=== PATIENT | male | born 1960 | race Caucasian/White ===

== ENCOUNTER 2016-11-07 17:01 | Emergency (ER) | payer BC ==
[2016-11-07] MEDS ORDERED: Famotidine 20 MG/2 ML SDV ONE (17:12)
[2016-11-07] MEDS ORDERED: methylPREDNISolone Sodium Succinate 125 MG/2 ML SDV IVPUSH ONE (17:13)
[2016-11-07] MEDS ORDERED: Famotidine 20 MG/2 ML SDV IVPUSH ONE ×2 (17:13)
[2016-11-07] MEDS ORDERED: diphenhydrAMINE 50 MG/ML SDV IVPUSH ONE (17:14)
[2016-11-07] MEDS ORDERED: Sodium Chloride 0.9% 1,000 ML IV SCH (17:15)
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
[2016-11-07 18:34] VITALS: BP 140/93
== END 2016-11-07 18:32 | disposition home or self-care (01) ==
LOC: SUPCPDRO 17:01 → JD.ED 17:01
DX: T63.441A Toxic effect of venom of bees, accidental (unintentional), initial encounter (principal); Z90.49 Acquired absence of other specified parts of digestive tract
CPT/HCPCS: 96361; 96374; 96375; 99285; J1200; J2930; J7040; 99284

== ENCOUNTER 2020-06-21 08:51 | Emergency (ER) | payer BC, OTHER ==
[2020-06-21] MEDS ORDERED: Sodium Chloride 0.9% 10 ML Syringe FLUSH PRN ×2 (09:02→10:10)
[2020-06-21 09:08] VITALS: BP 144/84; PULSE 62
--- NOTE | 2020-06-21 09:20 | EDM.PDOC ---
ED HPI GENERAL MEDICAL PROBLEM - General Chief Complaint: Chest Pain Stated Complaint: CHEST PAIN Time Seen by Provider: 06/21/20 09:02 Source of Information: Reports: Patient, RN Notes Reviewed - History of Present Illness INITIAL COMMENTS - FREE TEXT/NARRATIVE: 59 yr old male with sudden onset of chest pain, light headedness and dizziness about 1 hr ago. As outdoors working at the time. He states it "dropped him to his knees", almost passed out. Initially he was short of breath with some pleuritic chest pain. He now feels better, pain is almost gone. Hx CLL. No hx CAD. No recent cough, fever or chills. He bruised his L thigh badly from a fall yesterday so has a hematoma L thigh from that injury. Treatments MANUFACTURING CONTROLLER: Reports: Aspirin Other Treatments MANUFACTURING CONTROLLER: 81mg Middle Chest Pain Score (Numeric/FACES): 9 - Related Data Allergies Allergy/AdvReac Type Severity Reaction Status Date / Time acetaminophen [From Tylenol] Allergy Airway Verified 11/07/16 17:15 Tightness bee venom protein (honey bee) Allergy Swelling Verified 06/21/20 09:01 Home Meds: Home Meds EPINEPHrine [Epipen 2-Johan] 0.3 mg IJ ONETIME #2 ml 11/07/16 [Rx] Past Medical History Immunologic History: Reports: Other (See Below) (Allergic to bees.) - Past Surgical History GI Surgical History: Reports: Appendectomy Social & Family History - Caffeine Use Caffeine Use: Reports: Coffee, Soda - Living Situation & Occupation Living situation: Reports: Occupation: Employed ED ROS GENERAL - Review of Systems Review Of Systems: See Below Constitutional: Denies: Fever, Chills HEENT: Reports: No Symptoms Respiratory: Reports: Shortness of Breath (gone), Pleuritic Chest Pain (gone) Cardiovascular: Reports: Chest Pain (almost gone), Lightheadedness (now much better) GI/Abdominal: Denies: Abdominal Pain, Nausea, Vomiting Musculoskeletal: Reports: Leg Pain (area of injury L lateral thigh) Skin: Reports: Bruising (L lateral thigh) Neurological: Reports: Numbness (He had numbness at time of onset, "whole body", brief, now gone). Denies: Tingling, Trouble Speaking, Difficulty Walking, Weakness ED EXAM, GENERAL - Physical Exam Exam: See Below General Appearance: Alert, No Apparent Distress Eye Exam: Bilateral Eye: PERRL Throat/Mouth: Normal Inspection Head: Atraumatic. No: Facial Swelling Neck: Supple Respiratory/Chest: No Respiratory Distress, Lungs Clear, Normal Breath Sounds Cardiovascular: Regular Rate, Rhythm GI/Abdominal: Soft, Non-Tender. No: Guarding Extremities: Leg Pain, Other (Moderate bruising L thigh, small abrasion L lateral lower leg, calf nontender, not swollen). No: Pedal Edema, Increased Warmth, Redness Neurological: Alert, Oriented Skin Exam: Warm, Dry, Normal Color #1 Interpretation EKG Date: 06/21/20 Rhythm: NSR [place]: Normal P-Wave: Present QRS: Normal ST-T: Normal Course - Vital Signs Last Recorded V/S: Last Vital Signs Temp 98.4 F 06/21/20 09:06 Pulse 62 06/21/20 09:06 Resp 16 06/21/20 09:06 BP 144/84 H 06/21/20 09:06 Pulse Ox 96 06/21/20 09:06 - Orders/Labs/Meds Labs: Laboratory Tests 06/21/20 06/21/20 06/21/20 Range/Units 09:07 09:07 09:07 WBC 146.58 H* (4.23-9.07) K/mm3 RBC 4.37 L (4.63-6.08) M/mm3 Hgb 12.8 L D (13.7-17.5) gm/dl Hct 40.2 (40.1-51.0) % MCV 92.0 D (79.0-92.2) fl MCH 29.3 (25.7-32.2) pg MCHC 31.8 L (32.2-35.5) g/dl RDW Std Deviation 50.8 H (35.1-43.9) fL Plt Count 141 L (163-337) K/mm3 MPV 9.6 (9.4-12.3) fl Neut % (Auto) 3.7 L (34.0-67.9) % Lymph % (Auto) 92.8 H (21.8-53.1) % [place] % (Auto) 2.8 L (5.3-12.2) % Eos % (Auto) 0.2 L (0.8-7.0) Baso % (Auto) 0.3 (0.1-1.2) % Neut # (Auto) 5.35 (1.78-5.38) K/mm3 Lymph # (Auto) 136.06 H (1.32-3.57) K/mm3 [place] # (Auto) 4.08 H (0.30-0.82) K/mm3 Eos # (Auto) 0.23 (0.04-0.54) K/mm3 Baso # (Auto) 0.51 H (0.01-0.08) K/mm3 Manual Slide Review Abnormal smear D-Dimer, Quantitative 0.98 H (0.19-0.50) mg/L Sodium 142 (136-145) mEq/L Potassium 4.4 (3.5-5.1) mEq/L Chloride 107 (98-107) mEq/L Carbon Dioxide 22 (21-32) mEq/L Anion Gap 17.4 H (5-15) BUN 19 H (7-18) mg/dL Creatinine 1.0 (0.7-1.3) mg/dL Est Cr Clr Drug Dosing 89.89 mL/min Estimated GFR (MDRD) > 60 (>60) mL/min BUN/Creatinine Ratio 19.0 H (14-18) Glucose 116 H (74-106) mg/dL Calcium 9.3 (8.5-10.1) mg/dL Total Bilirubin 0.5 (0.2-1.0) mg/dL AST 29 (15-37) U/L ALT 31 (16-63) U/L Alkaline Phosphatase 90 (46-116) U/L Troponin I 0.035 (0.00-0.056) ng/mL Total Protein 6.9 (6.4-8.2) g/dl Albumin 4.0 (3.4-5.0) g/dl Globulin 2.9 gm/dL Albumin/Globulin Ratio 1.4 (1-2) Meds: Medications Discontinued Medications Generic Name Dose Route Start Last Admin Trade Name Freq PRN Reason Stop Dose Admin Sodium Chloride 100 mls @ 75 mls/hr 06/21/20 10:15 06/21/20 10:16 Normal Saline IV 75 mls/hr ASDIRECTED BROCK Administration Sodium Chloride 1,000 mls @ 999 mls/hr 06/21/20 12:00 06/21/20 12:12 Normal Saline IV 999 mls/hr ONETIME BROCK Administration Iopamidol 100 ml 06/21/20 10:10 06/21/20 10:15 [id number] (76%) IVPUSH 06/21/20 10:11 100 ml ONETIME ONE Administration Sodium Chloride 10 ml 06/21/20 09:02 06/21/20 09:15 Saline Flush FLUSH 10 ml ASDIRECTED PRN Administration Keep Vein Open Sodium Chloride 10 ml 06/21/20 10:10 06/21/20 10:15 Saline Flush FLUSH 10 ml ONETIME PRN Administration IV FLUSH - Re-Assessments/Exams Free Text/Narrative Re-Assessment/Exam: 06/21/20 11:53 WBC 146,000. D Dimer 0.98. His states his counts have been going up , about 170,000 at the clinic very recently, about to start a new round of oral chemo. CT Pul angio done, no PE. See Radiology report for details. Will give 1 liter NS prior to discharge. Departure - Departure Time of Disposition: 12:54 Disposition: Home, Self-Care 01 Condition: Fair Clinical Impression: Near syncope, CLL (chronic lymphocytic leukemia), Atypical chest pain Contusion, thigh Qualifiers: Encounter type: initial encounter Laterality: left Qualified Code(s): S70.12XA - Contusion of left thigh, initial encounter Instructions: Near-Syncope, [id number], Nonspecific Chest Pain, Adult, [id number] Referrals: Felicia Jolley PA-C [Primary Care Provider] - Forms: ED Department Discharge Additional Instructions: Drink plenty of water to maintain hydration. Try get some rest. Start oral chemo. as planned. Follow up Dr Centeno as needed. Return to ED as needed if symptoms worsening in way. Sepsis Event Note (ED) - Evaluation Sepsis Screening Result: No Definite Risk
--- NOTE | 2020-06-21 09:39 | CR ---
Chest: Portable view of the chest was obtained. Comparison: No prior chest imaging is available. Heart size is normal. Tortuous thoracic aorta is seen. Lungs are clear with no acute parenchymal change. Bony structures are grossly intact. Impression: 1. Nothing acute is seen on portable chest x-ray. Diagnostic code #1
[2020-06-21] MEDS ORDERED: Iopamidol 755 Mg/ML 100 ML Bottle IVPUSH ONE (10:10)
[2020-06-21] MEDS ORDERED: Sodium Chloride 0.9% 100 ML IV SCH (10:15)
--- NOTE | 2020-06-21 10:34 | CT ---
CT chest Technique: Multiple axial sections through the chest were obtained. Intravenous contrast was utilized as a pulmonary angiogram protocol. Comparison: No prior chest CT, previous chest x-ray performed on the same day as the CT exam. Findings: Pulmonary arteries are well opacified. No filling defects are seen to indicate pulmonary embolism. Adenopathy is seen within both axillary regions. Slightly prominent lymph node is noted within the inferior right hilar region. Small lymph nodes within the mediastinum which are believed to be within normal limits. Coronary artery calcification is seen. No pericardial thickening is identified. Spleen is enlarged. Lung window setting shows no acute parenchymal change. Bone window settings were reviewed which show degenerative change scattered within the spine. Several areas of sclerotic change are seen within the vertebral bodies which are most likely degenerative in etiology. Impression: 1. No findings of pulmonary embolism. 2. Increased adenopathy within both hilar regions as well as enlarged spleen. Findings presumably are neoplastic in etiology. 3. Other findings as noted above most likely incidental. Diagnostic code #9
[2020-06-21] MEDS ORDERED: Sodium Chloride 0.9% 1,000 ML IV SCH (12:00)
== END 2020-06-21 13:10 | disposition home or self-care (01) ==
LOC: JD.ED 08:51
DX: S70.12XA Contusion of left thigh, initial encounter (principal); S80.812A Abrasion, left lower leg, initial encounter; R55 Syncope and collapse; C91.10 Chronic lymphocytic leukemia of B-cell type not having achieved remission; R07.89 Other chest pain; Z88.6 Allergy status to analgesic agent; Z91.030 Bee allergy status; W01.0XXA Fall on same level from slipping, tripping and stumbling without subsequent striking against object, initial encounter; Y99.0 Civilian activity done for income or pay
CPT/HCPCS: 36415; 71045; 71275; 80053; 84484; 85025; 85379; 93005; 99285; J7030; Q9967; 93010; 99284

== ENCOUNTER 2020-06-22 13:22 | Emergency (ER) | payer BC ==
[2020-06-22] MEDS ORDERED: Tenecteplase 50 MG Kit ONE (13:40)
[2020-06-22] MEDS ORDERED: fentaNYL 100 MCG/2 ML SDV IVPUSH ONE (13:40)
[2020-06-22] MEDS ORDERED: Aspirin 81 MG Tab.Chew PO ONE (13:40)
[2020-06-22] MEDS ORDERED: Metoclopramide 10 MG/2 ML SDV IVPUSH ONE (13:40)
[2020-06-22] MEDS ORDERED: Tenecteplase 50 MG Kit IV ONE (13:41)
--- NOTE | 2020-06-22 13:43 | EDM.PDOC ---
ED HPI GENERAL MEDICAL PROBLEM - General Chief Complaint: Chest Pain Stated Complaint: CHEST PAIN Time Seen by Provider: 06/22/20 13:33 Source of Information: Reports: Patient History Limitations: Reports: No Limitations - History of Present Illness INITIAL COMMENTS - FREE TEXT/NARRATIVE: 59-year-old male attends the ED with severe central chest pain being through to his mid back between his shoulder blades. Rates pain 10 out of 10. He presents short of breath dyspneic diaphoretic and can hardly hold still due to the severity of the pain. Patient came within 15 minutes of developing the terrible chest pain. The onset of chest pain was approximately 1315 hrs. today. He had eaten his dinner. The patient reports that he does have chronic lymphocytic leukemia diagnosed a little over a year ago. His oncologist is Dr. Herndon. He is due to start medication and I believe this is likely hydroxyurea but has not started yet. White count when he was seen through the ED yesterday was 146,058. Hemoglobin was 12.8 with hematocrit of 40.2 and platelet count was 141,000. His D-dimer was mildly elevated at 0.98 felt to be secondary to recent trauma to his left lateral mid thigh from falling between his tailgate and the back of his truck 2 days ago. Serum troponin done yesterday was 0.035. Patient states he had mild central chest discomfort yesterday but was fine this morning when he got up until pain started 15 minutes before arrival in the ED. ECG done immediately revealed a Q wave in leads V1 V2 with ST segment elevation in those leads suggesting acute anteroseptal injury pattern. There were reciprocal changes in leads II, III and aVF with ST segment depression. Patient immediately agreed to thrombolytic therapy and he had no Contraindications. Patient will be given fentanyl 100 mcg IV immediately as well as he is in severe pain. He is writhing on the bed. Of note an angiogram was done of his chest yesterday and he had a normal-appearing thoracic and upper abdominal aorta was done down to the superior mesenteric artery. Onset: Today, Sudden Onset Date: 06/22/20 Onset Time: 13:15 Duration: Minutes:, Getting Worse Location: Reports: Chest (Severe crushing central chest pain rating through to his back between his shoulder blades. No pain in the shoulders arms or nape of neck.) Quality: Reports: Ache, Pressure Severity: Severe (Ear aching pressure squeezing discomfort.) Improves with: Reports: None ( 10 out of 10.) Worsens with: Reports: None Context: Denies: Activity, Exercise, Lifting, Sick Contact, Trauma, Other Associated Symptoms: Reports: Chest Pain, Diaphoresis, Nausea/Vomiting, Shortness of Breath, Weakness (Without vomiting). 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 WORKER: none Chest Pain Score (Numeric/FACES): 8 - Related Data Allergies Allergy/AdvReac Type Severity Reaction Status Date / Time acetaminophen [From Tylenol] Allergy Airway Verified 11/07/16 17:15 Tightness bee venom protein (honey bee) Allergy Swelling Verified 06/21/20 09:01 Home Meds: Home Meds EPINEPHrine [Epipen 2-Johan] 0.3 mg IJ ONETIME #2 ml 11/07/16 [Rx] Past Medical History HEENT History: Reports: Impaired Vision Cardiovascular History: Reports: None Respiratory History: Reports: None Gastrointestinal History: Reports: GERD Genitourinary History: Reports: None Musculoskeletal History: Reports: None Neurological History: Reports: None Psychiatric History: Reports: None Endocrine/Metabolic History: Reports: None Hematologic History: Reports: None Other Hematologic History: Has chronic lymphocytic leukemia diagnosed a little over a year ago. Recently has white count has been traveling between 140,000 up to 190,000. He is being followed by Dr. Herndon department of oncology at [facility]. He is due to start medication which I believe is likely hydroxyurea next week. Immunologic History: Reports: Other (See Below) Other Immunologic History: CLL Oncologic (Cancer) History: Reports: Leukemia Other Oncologic History: CLL Dermatologic History: Reports: None - Infectious Disease History Infectious Disease History: Reports: None - Past Surgical History GI Surgical History: Reports: Appendectomy - History Comment History Comment: Has a severe allergy to be or hymenoptera venom. Carries an EpiPen with him. Social & Family History - Family History Family Medical History: No Pertinent Family History Neurological: Reports: CVA Oncologic: Reports: Pancreatic - Caffeine Use Caffeine Use: Reports: Coffee - Living Situation & Occupation Living situation: Reports: Occupation: Employed ED ROS GENERAL - Review of Systems Review Of Systems: See Below Constitutional: Reports: Diaphoresis (He is in severe pain with associated diaphoresis), Other. Denies: Fever, Chills, Malaise, Weakness, Fatigue, Weight Loss HEENT: Reports: No Symptoms Respiratory: Reports: Shortness of Breath. Denies: Wheezing, Pleuritic Chest Pain, Cough, Sputum Cardiovascular: Reports: Chest Pain, Blood Pressure Problem (Here central chest pain rating through to his mid back between the shoulder blades.), Dyspnea on Exertion. Denies: Claudication, Edema, Lightheadedness, Orthopnea Endocrine: Reports: Fatigue GI/Abdominal: Denies: Abdominal Pain, Anorexia, Black Stool, Bloody Stool, Con stipation, Diarrhea, Decreased Appetite, Difficulty Swallowing, Distension, Flatus, Hematemesis, Hematochezia, Melena, Vomiting, Other : Reports: Frequency, Other (Nocturia usually x2.) Musculoskeletal: Reports: Other (Recent fall with his left leg going between the end of his truck box and the tailgate injuring the mid left thigh. He has a softball sized hematoma left lateral mid thigh which is tender. This makes him walk with his left leg in full extension I eats not easy to bend and very difficult to try and go upstairs or to get into his vehicle.) Skin: Reports: Bruising (Left lateral mid thigh.) Neurological: Reports: No Symptoms Psychiatric: Reports: No Symptoms Hematologic/Lymphatic: Reports: No Symptoms Immunologic: Reports: No Symptoms ED EXAM, GENERAL - Physical Exam Exam: See Below Exam Limited By: Physical Impairment (Patient is in severe pain at the time of my initial assessment writhing all over the bed no position comfortable arching his back.) General Appearance: Alert, Severe Distress, Other (Vital signs showed initial temperature of 37.1 with a heart rate of 92 and sinus on the monitor respiratory rate was 24 to 28/min high hyperventilating. O2 sats 100% room air. Initial blood pressure 166 102.) Eye Exam: Bilateral Eye: Normal Inspection, PERRL Throat/Mouth: Normal Inspection, Normal Lips, Normal Teeth, Normal Oropharynx Head: Atraumatic, Normocephalic Neck: Normal Inspection, Supple, Non-Tender, Full Range of Motion. No: Lymphadenopathy (L), Lymphadenopathy (R) Respiratory/Chest: No Respiratory Distress, Lungs Clear, Normal Breath Sounds, No Accessory Muscle Use Cardiovascular: Normal Peripheral Pulses, Regular Rate, Rhythm, No Edema, No Gallop, No Murmur, No Rub Peripheral Pulses: 2+: Posterior Tibial (L), Posterior Tibial (R), Dorsalis Pedis (L), Dorsalis Pedis (R), 3+: Carotid (L), Carotid (R) GI/Abdominal: Soft, Non-Tender, No Organomegaly ( Mildly distended upper abdomen tympanic to percussion [place] with some degree of aerophagia.), No Mass, Pelvis Stable, Distended (Sounds are slightly decreased from the norm.), Abnormal Bowel Sounds. No: Guarding, Rigid, Rebound (Male) Exam: No Hernia Extremities: No Pedal Edema, Other (Patient's right lower extremity is normal. Patient fell between the edge of his truck box and his tailgate and his leg went down almost to the ground 2 days ago. This resulted in a significant formation of a hematoma to his lateral quadriceps muscles mid left thigh. It is approximately softball in size and early ecchymosis is developing. He is walking peg leg and on this leg.) Neurological: Alert, Oriented, CN II-XII Intact, Normal Cognition Psychiatric: Anxious, Other Skin Exam: Warm, Intact, Normal Color, No Rash, Diaphoretic, Other (Hematoma the size of a baseball left lateral thigh) #1 Interpretation EKG Date: 06/22/20 Time: 13:30 Rhythm: NSR Rate (Beats/Min): 95 [place]: Normal P-Wave: Enlarged (Left atrial hypertrophy pattern) QRS: Other (There are Q waves in leads V1 and VF with acute ST segment elevation suggesting acute injury pattern to the anterior septal wall.) ST-T: Depressed (There is ST segment depression in leads II, III and aVF which are felt to be reciprocal changes from anteroseptal wall myocardial infarction.) QT: Normal EKG Interpretation Comments: Abnormal ECG #2 Interpretation EKG Date: 06/22/20 Time: 14:32 Rhythm: NSR Rate (Beats/Min): 83 [place]: Normal P-Wave: Enlarged (Consider left atrial hypertrophy pattern) QRS: Other (There is a Q wave in V1 and V2 with ST segment elevation particularly noted in V2. This is a little less than on ECG #1 done 1 [address] prior.) ST-T: Depressed (There is ST segment depression in leads II, III and aVF compatible with reciprocal changes.) QT: Normal EKG Interpretation Comments: Abnormal ECG Course - Vital Signs Last Recorded V/S: Last Vital Signs Temp 37.1 C 06/22/20 13:41 Pulse 92 06/22/20 13:41 Resp BP 166/102 H 06/22/20 13:41 Pulse Ox 100 06/22/20 13:41 - Orders/Labs/Meds Orders: Active Orders 24 hr Category Date Time Status EKG 12 Lead [EKG Documentation Completion] [RC] STAT Care 06/22/20 13:15 Active Chest 1V Frontal [CR] Stat Exams 06/22/20 13:42 Taken C-REACTIVE PROTEIN [CHEM] Stat Lab 06/22/20 13:40 Received CKMB [CHEM] Stat Lab 06/22/20 13:40 Received COMPREHENSIVE METABOLIC PN,CMP [CHEM] Stat Lab 06/22/20 13:40 Received CORONAVIRUS COVID-19 ALAN [MOLEC] Stat Lab 06/22/20 13:55 Received MAGNESIUM [CHEM] Stat Lab 06/22/20 13:40 Received PRO B-TYPE NATRIUR PEPT,BNPPRO [CHEM] Stat Lab 06/22/20 13:40 Received TROPONIN I [CHEM] Stat Lab 06/22/20 13:40 Received URIC ACID [CHEM] Stat Lab 06/22/20 13:40 Received URINALYSIS W/MICROSCOPIC [UA W/MICROSCOPIC] [URIN] Stat Lab 06/22/20 13:43 Ordered Heparin Sodium/D5W [Heparin 25,000 Units in D5W 500 ML] Med 06/22/20 14:00 Active 25,000 units in 500 ml IV ASDIRECTED Nitroglycerin/D5W [Nitroglycerin 25 MG/D5W 250 ML] Med 06/22/20 13:45 Active 25 mg in 250 ml IV TITRATE Sodium Chloride 0.9% [Normal Saline] 1,000 ml Med 06/22/20 13:45 Active IV ASDIRECTED Medication Orders Nitroglycerin/Dextrose (Nitroglycerin 25 Mg/D5w 250 Ml) 25 mg in 250 mls @ 6 mls/hr IV TITRATE [facility]; Protocol Last Admin: 06/22/20 13:48 Dose: 10 mcg/min, 6 mls/hr Documented by: MARYJAEN Sodium Chloride (Normal Saline) 1,000 mls @ 125 mls/hr IV ASDIRECTED BROCK Last Admin: 06/22/20 13:47 Dose: 125 mls/hr Documented by: MARYJANE Heparin Sodium/Dextrose (Heparin 25,000 Units In D5w 500 Ml) 25,000 units in 500 mls @ 80 mls/hr IV ASDIRECTED BROCK Last Admin: 06/22/20 14:04 Dose: 4,000 units/hr, 80 mls/hr Documented by: MARYJANE Cosigned by: WOLFGANG Labs: Laboratory Tests 06/22/20 06/22/20 06/22/20 Range/Units 13:40 13:40 13:40 WBC 197.32 H* (4.23-9.07) K/mm3 RBC 4.84 (4.63-6.08) M/mm3 Hgb 14.4 D (13.7-17.5) gm/dl Hct 44.2 (40.1-51.0) % MCV 91.3 (79.0-92.2) fl MCH 29.8 (25.7-32.2) pg MCHC 32.6 (32.2-35.5) g/dl RDW Std Deviation 51.1 H (35.1-43.9) fL Plt Count 180 (163-337) K/mm3 MPV 10.4 (9.4-12.3) fl Neutrophils % (Manual) 6 L (40-60) % Band Neutrophils % 0 (0-10) % Lymphocytes % (Manual) 83 H (20-40) % Atypical Lymphs % 0 % Monocytes % (Manual) 4 (2-10) % Eosinophils % (Manual) 0 L (0.8-7.0) % Basophils % (Manual) 0 L (0.2-1.2) Blast Cells % 7 Platelet Estimate Adequate Poikilocytosis 1+ slight Anisocytosis 1+ slight RBC Morph Comment Abnormal PT 10.7 (9.7-12.0) SECONDS INR 1.00 D-Dimer, Quantitative 0.83 H (0.19-0.50) mg/L Meds: Medications Generic Name Dose Route Start Last Admin Trade Name Freq PRN Reason Stop Dose Admin Nitroglycerin/Dextrose 25 mg in 250 mls @ 6 mls/hr 06/22/20 13:45 06/22/20 13:48 Nitroglycerin 25 Mg/D5w 250 Ml IV 10 mcg/min TITRATE BROCK 6 mls/hr Administration Protocol 10 MCG/MIN Sodium Chloride 1,000 mls @ 125 mls/hr 06/22/20 13:45 06/22/20 13:47 Normal Saline IV 125 mls/hr ASDIRECTED BROCK Administration Heparin Sodium/Dextrose 25,000 units in 500 mls @ 80 mls/hr 06/22/20 14:00 06/22/20 14:04 Heparin 25,000 Units In D5w 500 Ml IV 4,000 units/hr ASDIRECTED BROCK 80 mls/hr Administration 4,000 UNITS/HR Discontinued Medications Generic Name Dose Route Start Last Admin Trade Name Freq PRN Reason Stop Dose Admin Aspirin 324 mg 06/22/20 13:40 06/22/20 13:48 Aspirin PO 06/22/20 13:41 324 mg ONETIME ONE Administration Clopidogrel Bisulfate 300 mg 06/22/20 13:52 06/22/20 14:02 Plavix PO 06/22/20 13:53 300 mg ONETIME ONE Administration Fentanyl 100 mcg 06/22/20 13:40 06/22/20 13:50 Sublimaze IVPUSH 06/22/20 13:41 100 mcg ONETIME ONE Administration Heparin Sodium (Porcine) 1,000 units 06/22/20 13:51 06/22/20 14:03 Heparin Sodium IVPUSH 06/22/20 13:52 1,000 units .BOLUS ONE Administration Hydromorphone HCl 1 mg 06/22/20 14:24 Dilaudid IVPUSH 06/22/20 14:25 ONETIME ONE Metoclopramide HCl 10 mg 06/22/20 13:40 06/22/20 13:47 Reglan IVPUSH 06/22/20 13:41 10 mg ONETIME ONE Administration Tenecteplase 50 mg 06/22/20 13:41 06/22/20 13:45 Tnkase IV 06/22/20 13:42 50 mg ONETIME ONE Administration Protocol Tenecteplase Confirm 06/22/20 13:40 Tnkase Administered 06/22/20 13:41 Dose 50 mg .ROUTE .[facility] ONE - Radiology Interpretation Free Text/Narrative:: 59-year-old male presents to the ED within 15 minutes of the development of severe retrosternal chest pressure discomfort radiating through to his mid back between his shoulder blades. Patient is writhing in pain and barely able to stay on the bed. He was diaphoretic. He has no past history of coronary disease. ECG done by nursing staff revealed a Q wave in V1 V2 with ST segment elevation in both of these leads suggesting acute anteroseptal injury pattern. Of note the patient was seen through the ED yesterday with vague anterior chest discomfort and worked up for a pulmonary embolism due to recent injury to his left lateral thigh and elevated D-dimer at 0.98. No pulmonary emboli were identified and thoracic aorta and visualized portions of the abdominal aorta with were within normal limits. Patient agreed to receive thrombolytics and with VELPHORO be given tenecteplase 50 mg IV as quickly as possible. Ordered fentanyl 100 mcg IV with Reglan 10 mg IV before acute pain and nausea relief. Chest x-ray will be done stat routine labs including cardiac markers and coags t o be done. Patient will be started on heparin 4000 unit bolus then 1000 units an hour. Plavix 300 mg p.o. He was given aspirin 324 mg immediately when first seen in the ED. - Re-Assessments/Exams Free Text/Narrative Re-Assessment/Exam: 06/22/20:13:58: Patient is feeling much better. Still has mild central chest pain but back pain is pretty well gone. Chest x-ray done portably reveals normal cardiac silhouette. Perhaps very slight vascular congestion right perihilar area and left perihilar area. No pleural effusion. Patient will require immediate transfer to [place]. I was able to speak to Dr. Alcala pants presser automatic on-call and the plan will be to have the patient transferred by helicopter directly to [facility] in [place] with a view to going straight to the [facility]. 06/22/20 14:30: Still has some residual central chest pain but no mid scapular pain. Is having significant chest pain out of 10. He is way better than he was when he came to the emergency department . He will be given Dilaudid 1 mg IV for pain relief at this time. Is due to arrive very shortly with plan to transfer him to [facility] in [place]. 06/22/20 15:08 White count came back today markedly elevated at 197,000.32 compatible with his chronic lymphocytic leukemia. I believe white count done yesterday was 146,000.58. Patient is apparently scheduled to start medications through his oncologist Dr. Herndon next week. I believe this will likely be hydroxyurea. Hemoglobin today is 14.4 with hematocrit of 44.2. MCV is 91.3. Platelet count is 180,000. Differential shows 6% neutrophils and 83% lymphocytes. The slide shows 1+ poikilocytosis and 1+ anisocytosis. PT is 10.7 with an INR 1.0 D-dimer is elevated at 0.83. Yesterday was 0.98. The pulmonary angiogram done yesterday was negative for any PE. Patient is recently had a fall with direct injury to his left lateral thigh with hematoma formation which is the cause of his elevated D-dimer. Serum sodium is 143 with a potassium of 4.1. Chloride is 105 with a bicarb of 22. Anion gap is 20.1. BUN is 16 with a creatinine of 1.4. GFR is 52. Glucose elevated 159. Uric acid is 4.7. Calcium is 9.5. Magnesium 2.2. Bilirubin 0.4 with slightly elevated AST at 45. ALT is 30. Alk phos today is 102. CK-MB fraction is markedly elevated 11.5 and troponin I is elevated at 1.524. C-reactive protein is less than 0.2. BNP is elevated at 3029. Total protein 7.6 with an albumin fraction of 4.3. COVID-19 screen is negative. Departure - Departure Time of Disposition: 14:20 Disposition: DC/Tfer to Acute Hospital 02 Reason for Transfer *Q: Primary PCI Indicated Condition: Serious Clinical Impression: Acute myocardial infarction due to left coronary artery occlusion, Chronic lymphocytic leukemia Quadriceps contusion Qualifiers: Encounter type: initial encounter Laterality: left Qualified Code(s): S70.12XA - Contusion of left thigh, initial encounter Instructions: Contusion, Xtoe-[id number] Referrals: Felicia Jolley PA-C [Primary Care Provider] - Forms: ED Department Discharge Additional Instructions: Patient transferred to [facility] in [place] under the care of Dr. Alcala manager regional due to acute injury anterior septal wall i.e. STEMI. Sepsis Event Note (ED) - Focused Exam Vital Signs: Vital Signs Temp Pulse BP Pulse Ox 06/22/20 13:41 37.1 C 92 166/102 H 100 - My Orders Last 24 Hours: My Active Orders 06/22/20 13:15 EKG 12 Lead [EKG Documentation Completion] [RC] STAT 06/22/20 13:40 C-REACTIVE PROTEIN [CHEM] Stat CKMB [CHEM] Stat COMPREHENSIVE METABOLIC PN,CMP [CHEM] Stat MAGNESIUM [CHEM] Stat PRO B-TYPE NATRIUR PEPT,BNPPRO [CHEM] Stat TROPONIN I [CHEM] Stat URIC ACID [CHEM] Stat 06/22/20 13:42 Chest 1V Frontal [CR] Stat 06/22/20 13:43 URINALYSIS W/MICROSCOPIC [UA W/MICROSCOPIC] [URIN] Stat 06/22/20 13:45 Nitroglycerin/D5W [Nitroglycerin 25 MG/D5W 250 ML] 25 mg in 250 ml IV TITRATE Sodium Chloride 0.9% [Normal Saline] 1,000 ml IV ASDIRECTED 06/22/20 13:55 CORONAVIRUS COVID-19 ALAN [MOLEC] Stat 06/22/20 14:00 Heparin Sodium/D5W [Heparin 25,000 Units in D5W 500 ML] 25,000 units in 500 ml IV ASDIRECTED - Assessment/Plan Last 24 Hours: My Active Orders 06/22/20 13:15 EKG 12 Lead [EKG Documentation Completion] [RC] STAT 06/22/20 13:40 C-REACTIVE PROTEIN [CHEM] Stat CKMB [CHEM] Stat COMPREHENSIVE METABOLIC PN,CMP [CHEM] Stat MAGNESIUM [CHEM] Stat PRO B-TYPE NATRIUR PEPT,BNPPRO [CHEM] Stat TROPONIN I [CHEM] Stat URIC ACID [CHEM] Stat 06/22/20 13:42 Chest 1V Frontal [CR] Stat 06/22/20 13:43 URINALYSIS W/MICROSCOPIC [UA W/MICROSCOPIC] [URIN] Stat 06/22/20 13:45 Nitroglycerin/D5W [Nitroglycerin 25 MG/D5W 250 ML] 25 mg in 250 ml IV TITRATE Sodium Chloride 0.9% [Normal Saline] 1,000 ml IV ASDIRECTED 06/22/20 13:55 CORONAVIRUS COVID-19 ALAN [MOLEC] Stat 06/22/20 14:00 Heparin Sodium/D5W [Heparin 25,000 Units in D5W 500 ML] 25,000 units in 500 ml IV ASDIRECTED
[2020-06-22] MEDS ORDERED: Nitroglycerin/D5W 25 MG/250 ML BOTTLE IV SCH (13:45)
[2020-06-22] MEDS ORDERED: Sodium Chloride 0.9% 1,000 ML IV SCH (13:45)
[2020-06-22] MEDS ORDERED: Heparin Sodium 5,000 Units/ML Vial IVPUSH ONE ×2 (13:45→13:51)
[2020-06-22] MEDS ORDERED: Clopidogrel 75 MG Tab PO ONE (13:52)
[2020-06-22] MEDS ORDERED: Heparin Sodium/D5W 25,000 UNITS/500 ML BAG IV SCH (14:00)
[2020-06-22] MEDS ORDERED: HYDROmorphone 1 MG/ML Syringe IVPUSH ONE (14:24)
--- NOTE | 2020-06-22 14:34 | CR ---
Chest: Portable view of the chest was obtained. Comparison: Prior chest CT study performed one day earlier on 06/21/20. Heart size is normal for portable technique. Tortuous thoracic aorta is seen. Lungs are clear with no acute parenchymal change. No gross bony abnormality is appreciated. Impression: 1. Nothing acute is seen on portable chest x-ray. Diagnostic code #1
[2020-06-22 15:51] VITALS: BP 131/77; PULSE 78
== END 2020-06-22 14:50 ==
LOC: JD.ED 13:22
DX: I21.01 ST elevation (STEMI) myocardial infarction involving left main coronary artery (principal); C91.10 Chronic lymphocytic leukemia of B-cell type not having achieved remission; S70.12XA Contusion of left thigh, initial encounter; Z88.6 Allergy status to analgesic agent; Z91.030 Bee allergy status; Z20.822 Contact with and (suspected) exposure to COVID-19; W23.0XXA Caught, crushed, jammed, or pinched between moving objects, initial encounter
CPT/HCPCS: 36415; 71045; 80053; 82553; 83735; 83880; 84484; 84550; 85007; 85027; 85379; 85610; 85730; 86140; 87635; 93005; 96365; 96368; 96375; 99285; A9270; J1170; J1644; J2765; J3010; J3101; J3490; J7030; 93010; U0002

== ENCOUNTER 2021-07-08 06:53 | Day surgery (SDC) | payer BC ==
[~2021-07-08 06:53] MED LIST: Lactated Ringers 1,000 ML IV SCH; Lidocaine 1%/Sod Bicarbonate in NS 8.4% 1 ML Syringe IDERM PRN; Sodium Chloride 0.9% 10 ML Syringe FLUSH PRN; Sodium Chloride 0.9% 10 ML Syringe FLUSH SCH
[2021-07-08] MEDS ORDERED: Propofol 200 MG/20 ML SDV ONE ×3 (07:02→08:35)
[2021-07-08] MEDS ORDERED: Lidocaine 1% 4 ML ONE (07:02)
[2021-07-08 09:37] VITALS: BP 118/70; PULSE 62
== END 2021-07-08 09:35 | disposition home or self-care (01) ==
LOC: JD.SDS 06:53
PROVIDERS: ATTEND Surgery
DX: D12.2 Benign neoplasm of ascending colon (principal); D12.0 Benign neoplasm of cecum; D12.3 Benign neoplasm of transverse colon; D12.4 Benign neoplasm of descending colon; I25.2 Old myocardial infarction; I25.10 Atherosclerotic heart disease of native coronary artery without angina pectoris; K64.1 Second degree hemorrhoids; Z91.030 Bee allergy status; Z87.891 Personal history of nicotine dependence; Z98.890 Other specified postprocedural states; Z79.899 Other long term (current) drug therapy; Z88.8 Allergy status to other drugs, medicaments and biological substances; Z90.49 Acquired absence of other specified parts of digestive tract
CPT/HCPCS: 45380; 45385; J2704; J7120; 00812

== ENCOUNTER 2022-08-23 01:09 | Emergency (ER) | payer BC, OTHER ==
[2022-08-23] MEDS ORDERED: Sodium Chloride 0.9% 10 ML Syringe FLUSH PRN (01:27)
[2022-08-23] MEDS ORDERED: Aspirin 81 MG Tab.Chew PO ONE (01:36)
[2022-08-23] MEDS ORDERED: Magnesium Sulfate/Water 2 GM in Premix Bag 1 BAG IV ONE (02:31)
[2022-08-23] MEDS ORDERED: Famotidine 20 MG/2 ML SDV IVPUSH ONE (02:48)
[2022-08-23] MEDS ORDERED: Nitroglycerin 0.4 MG Tab.SL SL ONE (02:49)
[2022-08-23 06:43] VITALS: BP 126/65; PULSE 81
== END 2022-08-23 06:35 ==
LOC: JD.ED 01:09
DX: R07.2 Precordial pain (principal); I25.10 Atherosclerotic heart disease of native coronary artery without angina pectoris; I25.2 Old myocardial infarction; Z91.030 Bee allergy status; Z88.8 Allergy status to other drugs, medicaments and biological substances; Z79.82 Long term (current) use of aspirin
CPT/HCPCS: 36415; 71045; 80053; 83690; 83735; 84484; 85025; 85379; 85610; 93005; 96365; 96366; 96375; 99285; A9270; J3475; J3490; 93010